=== PATIENT | female | born 1960 | race Caucasian/White ===

== ENCOUNTER 2016-08-28 05:11 | Day surgery (SDC) | payer OTHER, MEDICARE ==
[~2016-08-28 05:11] MED LIST: ACEON OR; ADVAIR100 INH; ADVAIR115P INH; AMARYL1 MG PO; AMARYL2 PO; AMARYL4 PO; ANTARA130 MG PO; ASAB PO; BYSTOLIC5 MG PO; DOXEPIN HCL100 MG PO; FERROUS SULF324 MG PO; FLONASE NAS; GLUCPH PO; JANUVIA50 PO; LEVOTHROID50 MCG PO; LEVOTHYROXIN100 MCG PO; LEVOTHYROXIN50 MCG PO; MEVACOR PO; MOBIC15 MG PO; MOBIC7.5 PO; NEUR600 PO; NEXIUM40 PO; NORCO1 TA1 PO; NORCO1 TA2 PO; PRAVACHOL40 MG PO; PRILO PO; PRIN20 PO; PRISTIQ50 MG PO; PROAIR HFA INH; PROTONIX PO; PROVHFA INH; PROZAC PO; PROZAC40 MG PO; SINEQUAN 50 MG50 MG PO; SINGULAIR1 PO; ULTRAM50 PO; WELLXL150 PO; X5 PO; [UNRECOGNIZED DRUG - OTHER] PO; [UNRECOGNIZED DRUG - OTHER] PO
== END 2016-08-28 08:16 | disposition home or self-care (01) ==
LOC: SDC 05:11
PROVIDERS: Orthopaedic Surgery
PROC: B01BZZZ Fluoroscopy of Spinal Cord (ICD-10-PCS; 2016-08-28)
PROC: 3E0R3BZ Introduction of Anesthetic Agent into Spinal Canal, Percutaneous Approach (ICD-10-PCS; principal; 2016-08-28 08:00)
DX: M54.16 Radiculopathy, lumbar region (principal); G43.909 Migraine, unspecified, not intractable, without status migrainosus; E78.00 Pure hypercholesterolemia, unspecified; J45.909 Unspecified asthma, uncomplicated; G47.30 Sleep apnea, unspecified; K21.9 Gastro-esophageal reflux disease without esophagitis; E11.9 Type 2 diabetes mellitus without complications; E03.9 Hypothyroidism, unspecified; F41.9 Anxiety disorder, unspecified; F32.9 Major depressive disorder, single episode, unspecified; D64.9 Anemia, unspecified; Z98.890 Other specified postprocedural states; Z79.899 Other long term (current) drug therapy; Z99.81 Dependence on supplemental oxygen; Z88.8 Allergy status to other drugs, medicaments and biological substances; Z86.73 Personal history of transient ischemic attack (TIA), and cerebral infarction without residual deficits; Z90.49 Acquired absence of other specified parts of digestive tract; Z90.710 Acquired absence of both cervix and uterus
CPT/HCPCS: 82962; J1040; J2250; J3010; Q9967